=== PATIENT | female | born 1975 | race African-American/Black ===

== ENCOUNTER 2020-04-12 01:27 | Emergency (ER) | payer SELFPAY ==
[~2020-04-12] VITALS: Ht 162.6 cm; Wt 53.1 kg
[2020-04-12 01:27] VITALS: BP 117/80
--- NOTE | 2020-04-12 02:55 | NUR ---
PATIENT PROVIDED WITH AN ORTHOPEDIC SHOES AND AYAN TAPE FOR THE RIGHT TOES.
--- NOTE | 2020-04-12 03:00 | NUR ---
Patient discharged to home in stable condition. Written and verbal after care instructions given. Patient verbalizes understanding of instruction.
== END 2020-04-12 03:14 | disposition home or self-care (01) ==
LOC: ER 01:31
DX: M79.674 Pain in right toe(s) (principal); Z88.6 Allergy status to analgesic agent

== ENCOUNTER 2020-07-31 11:43 | Day surgery (SDC) | payer SELFPAY ==
[~2020-07-31] VITALS: Ht 162.6 cm; Wt 57.6 kg
[2020-07-31 11:21] VITALS: BP 105/71
--- NOTE | 2020-07-31 11:39 | NUR ---
Patient discharged to [facility] unit#[id number] for continuity of care in stable condition going back to [facility] via ambulance. Written and verbal after care instructions given. Patient verbalizes understanding of instruction.
[~2020-07-31 11:43] MED LIST: IOHEXOL-350 100 ML VIAL IV ONE; IV NS 0.9% 250 ML IV ONE; METOPROLOL TARTRATE INJ 5 MG/5 ML AMPUL IVP PRN; METOPROLOL TARTRATE INJ 5 MG/5 ML AMPUL ONE; NITROGLYCERIN 0.4 MG/TAB BOTTLE ONE; NITROGLYCERIN 0.4 MG/TAB BOTTLE SL ONE
== END 2020-07-31 11:46 | disposition home or self-care (01) ==
LOC: CT 11:43
PROVIDERS: ATTEND Internal Medicine Interventional Cardiology
DX: I25.10 Atherosclerotic heart disease of native coronary artery without angina pectoris (principal)
CPT/HCPCS: 75574; J7050; Q9967; J3490

== ENCOUNTER 2021-12-10 07:50 | Inpatient (IN) | payer SELFPAY ==
[~2021-12-10] VITALS: Ht 162.6 cm; Wt 72.6 kg
--- NOTE | 2021-12-10 07:51 | NUR ---
Akil lorenz in EDM - 12/10/21 at 0823 by ALIX BIB RA [facility] FROM HOME FOR DECREASED LOC. PER HUSBANDM, "TOOK TOO MUCH OF HER NORCO AND SOMA"PER CALLER/SO,BLOOD S
--- NOTE | 2021-12-10 07:51 | NUR ---
BIB RA [facility] FROM HOME FOR DECREASED LOC. PER , "TOOK TOO MUCH OF HER NORCO AND SOMA." BLOOD SUGAR 142 PER EMS. PER , PT "FELL ON HER BUTT AND WAS FOUND UNCONSCIOUS ON THE FLOOR." AAOX1 TO FIRST NAME ONLY, BREATHING EVEN AND UNLABORED, A FIB ON MONITOR, POX 99% ON RA. WILL CONTINUE TO MONITOR.
--- NOTE | 2021-12-10 07:52 | NUR ---
IV ESTABLISHED R HAND 20G. LABS DRAWN AND COLLECTED AT BEDSIDE.
--- NOTE | 2021-12-10 07:58 | NUR ---
URINE COLLECTED AND SENT
[2021-12-10] MEDS ORDERED: NALOXONE HCL 0.4 MG/ML AMPUL IV ONE (08:00)
[2021-12-10] MEDS ORDERED: IV NS 0.9% 1,000 ML BAG IV ONE (08:00)
--- NOTE | 2021-12-10 08:03 | NUR ---
PT AWAKE, RESPONDS TO PAIN, SPEAKS IN FEW WORDS, RESPONDS TO NAME
[2021-12-10] MEDS ORDERED: NALOXONE HCL 0.4 MG/ML AMPUL ONE (08:05)
--- NOTE | 2021-12-10 08:09 | NUR ---
CALLED [facility]/ADVISE SPOKE TO KELSY AND THEY ADVISED: TO GIVE PATIENT CHARCOAL IF AIRWAY IS NOT COMPROMISED. CHECK TYLENOL, CBC, CMP, TOXICOLOGY, AND CHEMICAL LEVELS. GIVE PATIENT 1-2 MG OF NARCAN PRN. SOMA MAY CAUSE SPASMS. TREAT WITH NAC FOR TYLENOL OVERDOSE. IF PATIENT HAS A SEIZURE TREAT WITH VALIUM OR ATIVAN. MILD TACHYCARDIA MAY OCCUR WITH PATIENT AND SOMETHING TO BE ON THE LOOK OUT. REPEAT LAB WORK 4-6 HOURS AFTER INITIAL DRAW. PT TO REMAIN UNDER OBSERVATION FOR 4-6 HOURS.
[2021-12-10 08:10] LABS: BASOPHILS # (AUTO) 0.1 K/uL (0.0-0.2); BASOPHILS % (AUTO) 1.2 % (0.0-2.0); EOSINOPHILS % (AUTO) 4.8 % (0.0-6.0); HEMATOCRIT 33 % (33-45); HEMOGLOBIN 10.7 g/dL (11.5-14.8); LYMPHOCYTES # (AUTO) 2.6 K/uL (0.8-4.8); LYMPHOCYTES % (AUTO) 35.8 % (20.0-44.0); MEAN CORPUSCULAR HGB CONC 32 g/dl (31.0-36.0); MEAN CORPUSCULAR VOLUME 85 fL (82-100); MONOCYTES # (AUTO) 0.7 K/uL (0.1-1.30); MONOCYTES % (AUTO) 10.4 % (2.0-12.0); NEUTROPHILS # (AUTO) 3.4 K/uL (1.8-8.9); NEUTROPHILS % (AUTO) 47.8 % (43.0-81.0); PLATELET COUNT (AUTO) 259 K/uL (150-450); RED BLOOD CELL COUNT(AUTO) 3.88 MIL/uL (4.0-5.2); WHITE BLOOD COUNT (AUTO) 7.1 K/uL (4.3-11.0)
--- NOTE | 2021-12-10 08:20 | NUR ---
PT TAKEN TO CT
[2021-12-10 08:24] LABS: SERUM AMMONIA 24 umol/L (11-32)
[2021-12-10 08:26] LABS: BILIRUBIN,URINE NEGATIVE (NEGATIVE); COLOR,URINE YELLOW (YELLOW); LEUKOCYTE ESTERASE ,URINE NEGATIVE (NEGATIVE); NITRITE, URINE POSITIVE (NEGATIVE); PROTEIN,URINE NEGATIVE (NEGATIVE); UGLUCOSE NEGATIVE (NEGATIVE); UROBILINOGEN,URINE 0.2 EU/dL (0.2)
[2021-12-10 08:28] LABS: ACETAMINOPHEN 23 ug/ml (10-30); ALANINE AMINOTRANSFERASE 29 U/L (12-78); ALBUMIN 3.9 g/dL (3.4-5.0); ALKALINE PHOSPHATASE 61 U/L (46-116); ASPARTATE AMINOTRANSFERASE 21 U/L (15-37); BILIRUBIN,TOTAL 0.2 mg/dL (0.2-1.0); CALCIUM, SERUM 8.4 mg/dL (8.5-10.1); CREATININE 1.1 mg/dL (0.6-1.3); GLUCOSE 119 mg/dL (74-106); TOTAL PROTEIN, SERUM 7.5 g/dL (6.4-8.2); UREA NITROGEN, BLOOD 15 mg/dL (7-18)
--- NOTE | 2021-12-10 08:35 | NUR ---
COVID SAMPLE OBTAINED AND SENT TO LAB
[2021-12-10 08:41] LABS: BACTERIA,URINE Many /HPF (None Seen); RBC,URINE 0-2 /HPF (0-2); SQUAMOUS EPITHELIAL CELL,UR 0-2 /HPF (None Seen); WBC,URINE 0-2 /HPF (0-3)
[2021-12-10 08:46] LABS: ALCOHOL, BLOOD < 3 mg/dL (0-0)
[2021-12-10] MEDS ORDERED: LIDOCAINE 1% INJ 50 ML MDV IJ ONE ×2 (08:54→09:00)
[2021-12-10] MEDS ORDERED: BACITRACIN ZINC OINT PACKET 1 EA PACKET TP ONE ×2 (09:00→09:13)
[2021-12-10] MEDS ORDERED: TDAP [DIPH/PERTUSSIS/TET] 0.5 ML VIAL IM ONE ×2 (09:00→09:29)
--- NOTE | 2021-12-10 09:19 | NUR ---
WOUND CARE DONE AT BEDSIDE USING ASEPTIC TECHNIQUR. ANTIBIOTIC OINTMENT APPLIED AND WOUND COVERED WITH GAUZE.
[2021-12-10] MEDS ORDERED: CARI350T27 PO (09:22)
[2021-12-10] MEDS ORDERED: QUET25TA PO (09:22)
[2021-12-10] MEDS ORDERED: HYDR-3980 PO (09:22)
[2021-12-10] MEDS ORDERED: ALPR1TAB7 PO (09:22)
[2021-12-10] MEDS ORDERED: QUET300T2 PO (09:22)
[2021-12-10 09:30] LABS: CARBON DIOXIDE 21 mmol/L (21-32); CHLORIDE 102 mmol/L (98-107); POTASSIUM 3.9 mmol/L (3.5-5.1); SODIUM SERUM 133 mmol/L (136-145)
--- NOTE | 2021-12-10 09:49 | NUR ---
[facility] [phone]
--- NOTE | 2021-12-10 10:02 | NUR ---
PT SLEEPING IN BED, EASILY AROUSABLE
--- NOTE | 2021-12-10 10:17 | NUR ---
PAGED [facility].
[2021-12-10] MEDS ORDERED: CEFTRIAXONE 1 G in IV D5W 50 ML IV ONE (10:30)
--- NOTE | 2021-12-10 11:16 | NUR ---
PT SLEEPING IN BED, EASILY AROUSABLE TO PHYSICAL STIMULI
--- NOTE | 2021-12-10 12:18 | NUR ---
PT SLEEPING IN BED, EASILY AROUSABLE TO PHYSICAL STIMULI
--- NOTE | 2021-12-10 12:28 | NUR ---
NURSING SUP GAVE 312-1. BOB ARCINIEGA
--- NOTE | 2021-12-10 12:46 | NUR ---
REPORT GIVEN TO BOB ARCINIEGA
--- NOTE | 2021-12-10 13:00 | NUR ---
PT WOKEN UP, AAOX2, ABLE TO SPEAK IN COMPLETE SENTENCES NOW, AND GET UP. GAIT IS STABLE. AMBULATED TO RESTROOM AND BACK WITH SUPERVISION.
--- NOTE | 2021-12-10 13:18 | NUR ---
PT TRANSFERRED TO FLOOR FOLLOWING ACLS PROTOCOL WITH EMT TRANSPORTER AND RN. VS REMAINED STABLE.
--- NOTE | 2021-12-10 13:40 | NUR ---
TIRE BALANCER ADMITTING NOTES RECEIVED PATIENT FROM ER. PATIENT A/O X3 AT THIS TIME ABLE TO MAKE NEEDS KNOWN BUT FORGETFUL. PATIENT ON ROOM AIR, BREATHING EVEN AND UNLABORED; NO SOB NOTED. COMPLAINING OF MILD 3/10 BUTTOCK PAIN POST SUTURES. VS WNL. WILL CONTINUE TO MONITOR PATIENT.
[2021-12-10] MEDS ORDERED: ACETAMINOPHEN 325 MG TABLET PO PRN (14:30)
[2021-12-10] MEDS ORDERED: ONDANSETRON HCL/PF 4 MG/2 ML VIAL IVP PRN (14:30)
[2021-12-10] MEDS ORDERED: MAG HYDROX/AL HYDROX/SIMETH 30 ML UDC PO PRN (14:30)
[2021-12-10] MEDS ORDERED: IV NS 0.9% 1,000 ML IV PRN (14:30)
[2021-12-10 15:00] VITALS: BP 117/78
--- NOTE | 2021-12-10 15:40 | NUR ---
MANAGER LATIN AMA NOTES PATIENT DECIDED TO LEAVE AMA STATING SHE DOES NOT WANT TO STAY HERE, SHE FEELS GOOD AND WANTS TO GO HOME. AT BEDSIDE. EXPLAINED WHY IT WOULD BE BETTER TO STAY AT THE HOSPITAL AND CONTINUE MONITORING; RN AND CHARGE NURSE SPOKE TO WELL. UNDERSTANDS THE CONCERNS BUT UNABLE TO MAKE PATIENT STAY. PATIENT ALSO STATES IT IS HER SON'S BIRTHDAY TODAY WELL. AMA FORM SIGNED. IV ACCESS REMOVED WITH THE WRISTBAND. POISON CONTROL NOTIFIED; SPOKE TO [facility]. PER [facility] THEY ARE CLOSING OUT THE CASE; IF PATIENTS COMES BACK TO LET THEM KNOW.
[2021-12-10] MEDS ORDERED: Z GUARD REMEDY 4 OZ OINT TP PRN (17:00)
[2021-12-10] MEDS ORDERED: MAGNESIUM HYDROXIDE 30 ML UDC PO PRN (22:00)
== END 2021-12-10 15:30 | disposition left against medical advice (07) | DRG 917 ==
LOC: ER 07:52 → TELE 12:55
PROVIDERS: ADMIT Internal Medicine; ATTEND Internal Medicine
DX: T42.8X1A Poisoning by antiparkinsonism drugs and other central muscle-tone depressants, accidental (unintentional), initial encounter (principal); G92.8 Other toxic encephalopathy; J98.11 Atelectasis; E87.1 Hypo-osmolality and hyponatremia; T42.4X1A Poisoning by benzodiazepines, accidental (unintentional), initial encounter; Y92.9 Unspecified place or not applicable; Z88.6 Allergy status to analgesic agent; Z79.899 Other long term (current) drug therapy; E86.1 Hypovolemia; T40.2X1A Poisoning by other opioids, accidental (unintentional), initial encounter; M51.36 Other intervertebral disc degeneration, lumbar region; F12.20 Cannabis dependence, uncomplicated
CPT/HCPCS: 36415; 70450-TC; 71045-TC; 80048-TC; 80076-TC; 81001; 82140-TC; 82962-TC; 84703-TC; 85025-TC; 87081-TC; 87086-TC; 87186-TC; 90715; A6403; C9803; G0378; G0480; J0696; J2310; J3490; J7030; J7060

== ENCOUNTER 2022-12-22 18:55 | Emergency (ER) | payer SELFPAY ==
[~2022-12-22] VITALS: Ht 162.6 cm; Wt 67.1 kg
[~2022-12-22 18:55] MED LIST changes: +ALPR1TAB7 PO; +CARI350T27 PO; +HYDR-3980 PO; -IOHEXOL-350 100 ML VIAL IV ONE; -IV NS 0.9% 250 ML IV ONE; -METOPROLOL TARTRATE INJ 5 MG/5 ML AMPUL IVP PRN; -METOPROLOL TARTRATE INJ 5 MG/5 ML AMPUL ONE; -NITROGLYCERIN 0.4 MG/TAB BOTTLE ONE; -NITROGLYCERIN 0.4 MG/TAB BOTTLE SL ONE; +QUET25TA PO; +QUET300T2 PO
--- NOTE | 2022-12-22 19:10 | NUR ---
PT IN BED 12, PT A/O X3 BREATHING IS EVEN AND UNLABORED. AWAKE AND ANSWERING QUESTIONS C/O DRUG O.D. CONNECTED TO BEDSIDE MONITOR. BED LOCKED IN LOWEST POSITION.
[2022-12-22 19:36] LABS: CALCIUM, SERUM 8.9 mg/dL (8.5-10.1); CARBON DIOXIDE 31 mmol/L (21-32); CHLORIDE 101 mmol/L (98-107); CREATININE 0.9 mg/dL (0.6-1.3); GLUCOSE 118 mg/dL (74-106); SODIUM SERUM 141 mmol/L (136-145); UREA NITROGEN, BLOOD 9 mg/dL (7-18)
[2022-12-22 19:38] LABS: POTASSIUM 2.3 mmol/L (3.5-5.1)
[2022-12-22 19:43] LABS: ALANINE AMINOTRANSFERASE 13 U/L (12-78); ALBUMIN 3.5 g/dL (3.4-5.0); ALKALINE PHOSPHATASE 57 U/L (46-116); ASPARTATE AMINOTRANSFERASE 14 U/L (15-37); BILIRUBIN,TOTAL 0.2 mg/dL (0.2-1.0); TOTAL PROTEIN, SERUM 6.6 g/dL (6.4-8.2)
[2022-12-22 19:44] LABS: ALCOHOL, BLOOD < 3 mg/dL (0-0)
[2022-12-22] MEDS ORDERED: POTASSIUM CHLORIDE 20 MEQ TAB.PRT.SR PO ONE ×2 (19:47→20:00)
[2022-12-22] MEDS ORDERED: POTASSIUM CL. PREMIX PERIPHER. 50 ML ONE ×4 (19:47→22:42)
[2022-12-22 19:55] LABS: BASOPHILS # (AUTO) 0.1 K/uL (0.0-0.2); BASOPHILS % (AUTO) 0.7 % (0.0-2.0); EOSINOPHILS % (AUTO) 0.3 % (0.0-6.0); HEMATOCRIT 25 % (33-45); HEMOGLOBIN 7.6 g/dL (11.5-14.8); LYMPHOCYTES # (AUTO) 1.2 K/uL (0.8-4.8); LYMPHOCYTES % (AUTO) 11.1 % (20.0-44.0); MEAN CORPUSCULAR HGB CONC 31 g/dl (31.0-36.0); MEAN CORPUSCULAR VOLUME 75 fL (82-100); MONOCYTES # (AUTO) 0.7 K/uL (0.1-1.30); MONOCYTES % (AUTO) 6.5 % (2.0-12.0); NEUTROPHILS # (AUTO) 8.6 K/uL (1.8-8.9); NEUTROPHILS % (AUTO) 81.4 % (43.0-81.0); PLATELET COUNT (AUTO) 391 K/uL (150-450); RED BLOOD CELL COUNT(AUTO) 3.31 MIL/uL (4.0-5.2); WHITE BLOOD COUNT (AUTO) 10.6 K/uL (4.3-11.0)
--- NOTE | 2022-12-22 19:56 | NUR ---
FIRST BAG OF POTASSIUM STARTED.
[2022-12-22] MEDS: POTASSIUM CL. PREMIX PERIPHER. 50 ML IV SCH ×5 (20:00→23:35)
[2022-12-22 20:17] LABS: BAND % (MANUAL) 1 % (0.0-5.0); LYMPHOCYTES % (MANUAL) 13 % (16-48); MONOCYTES % (MANUAL) 7 % (0-11.0); NEUTROPHILS % (MANUAL) 79 (42-76)
--- NOTE | 2022-12-22 20:59 | NUR ---
2nd bag of potassium started.
--- NOTE | 2022-12-22 21:01 | NUR ---
URINE COLLECTED AND SENT TO LAB
[2022-12-22 21:36] LABS: BILIRUBIN,URINE NEGATIVE (NEGATIVE); COLOR,URINE YELLOW (YELLOW); LEUKOCYTE ESTERASE ,URINE 1+ (NEGATIVE); NITRITE, URINE POSITIVE (NEGATIVE); PROTEIN,URINE NEGATIVE (NEGATIVE); UGLUCOSE NEGATIVE (NEGATIVE)
[2022-12-22 21:49] LABS: BACTERIA,URINE 4+ /HPF (None Seen); SQUAMOUS EPITHELIAL CELL,UR 0-2 /HPF (None Seen)
--- NOTE | 2022-12-22 21:56 | NUR ---
3RD BAG OF K+
--- NOTE | 2022-12-22 23:26 | NUR ---
4TH BAG OF K+
[2022-12-22] MEDS ORDERED: FERR325T23 PO (23:53)
[2022-12-22] MEDS ORDERED: NITR100C6 PO (23:53)
[2022-12-23 00:09] LABS: MAGNESIUM 2.1 mg/dL (1.8-2.4)
[2022-12-23 00:10] LABS: CALCIUM, SERUM 8.5 mg/dL (8.5-10.1); CREATININE 0.8 mg/dL (0.6-1.3); POTASSIUM 3.7 mmol/L (3.5-5.1)
--- NOTE | 2022-12-23 03:13 | NUR ---
Patient discharged to home in stable condition. Written and verbal after care instructions given. Patient verbalizes understanding of instruction. IV removed. Catheter intact and site benign. Pressure and 4x4 applied to site. No bleeding noted. pt ambulatory with a steady gait
[2022-12-23 03:14] VITALS: BP 112/68
== END 2022-12-23 03:14 | disposition home or self-care (01) ==
LOC: ER 18:59
DX: T40.601A Poisoning by unspecified narcotics, accidental (unintentional), initial encounter (principal); N39.0 Urinary tract infection, site not specified; E87.6 Hypokalemia; D50.9 Iron deficiency anemia, unspecified; Z79.899 Other long term (current) drug therapy; Z88.1 Allergy status to other antibiotic agents; Y92.89 Other specified places as the place of occurrence of the external cause
CPT/HCPCS: 99284; 96365; 96366; 85025; 80048 ×2; 80076; 83735; 84703; 85007; 81001; 36415; 80143; 80320; 80307; 93005; J3480 ×4; 87086-TC; G0480